=== PATIENT | female | born 1935 | race Caucasian/White ===

== ENCOUNTER 2018-05-22 11:23 | Day surgery (SDC) | payer MEDICARE, OTHER ==
[~2018-05-22] VITALS: Ht 161.3 cm; Wt 77.3 kg
[~2018-05-22 11:23] MED LIST: OXYC-145 PO
[2018-05-22] MEDS ORDERED: fentaNYL/PF 50MCG/1 ML 2ML syringe ONE (11:31)
[2018-05-22] MEDS ORDERED: MIDAZolam 5mg/5ml vial ONE (11:32)
[2018-05-22 11:37] VITALS: BP 149/83
[2018-05-22 12:14] VITALS: BP 120/75
[2018-05-22] MEDS ORDERED: ALPR-623 PO (12:16)
[2018-05-22] MEDS ORDERED: FLUO40CA PO (12:19)
[2018-05-22] MEDS ORDERED: PRAV20TA4 PO (12:20)
[2018-05-22] MEDS ORDERED: XAL0.005OS OP (12:21)
[2018-05-22] MEDS ORDERED: ACET-812 PO (12:21)
[2018-05-22 12:24] VITALS: BP 133/64
[2018-05-22 12:34] VITALS: BP 125/73
[2018-05-22 12:44] VITALS: BP 128/68
== END 2018-05-22 12:55 | disposition home or self-care (01) ==
LOC: GI LAB 11:23
PROVIDERS: ATTEND Internal Medicine Gastroenterology
DX: K64.8 Other hemorrhoids (principal); Z88.5 Allergy status to narcotic agent; Z88.6 Allergy status to analgesic agent; Z78.0 Asymptomatic menopausal state; Z85.21 Personal history of malignant neoplasm of larynx; Z79.891 Long term (current) use of opiate analgesic; Z79.899 Other long term (current) drug therapy; Z98.890 Other specified postprocedural states
CPT/HCPCS: 45378; J2250; J3010; J7030; 99152; A4620